=== PATIENT | female | born 1965 | race Caucasian/White ===

== ENCOUNTER 2018-09-11 05:20 | Emergency (ER) | payer MEDICAID ==
[~2018-09-11] VITALS: Ht 162.6 cm; Wt 76.9 kg
[2018-09-11 05:25] VITALS: BP 119/75
--- NOTE | 2018-09-11 05:25 | NUR ---
PT AMBULATED TO BED 4
--- NOTE | 2018-09-11 05:35 | NUR ---
CAME IN WITH C/O LOWER BACK PAIN RADIATING TO HER LOWER ABD, FOR 3 DAYS, NO TRAUMA NOR INJURY, DENIES PAINFUL URINATION.
--- NOTE | 2018-09-11 05:49 | NUR ---
Dr. Weldon evaluating patient at bedside.
[2018-09-11] MEDS ORDERED: NACL 0.9% 500 ML IV ONE ×2 (05:51)
[2018-09-11] MEDS ORDERED: ONDANSETRON 4 MG/2 ML VIAL IVP ONE ×2 (05:55→06:15)
[2018-09-11] MEDS ORDERED: KETOROLAC 30 MG/ML VIAL IVP ONE (05:55)
--- NOTE | 2018-09-11 06:16 | NUR ---
PT TAKEN TO CT VIA [facility].
[2018-09-11 07:00] VITALS: BP 101/59
== END 2018-09-11 07:00 | disposition home or self-care (01) ==
LOC: MED 05:20
DX: S39.012A Strain of muscle, fascia and tendon of lower back, initial encounter (principal); R50.9 Fever, unspecified; X58.XXXA Exposure to other specified factors, initial encounter; Y93.89 Activity, other specified; Y92.89 Other specified places as the place of occurrence of the external cause; Y99.8 Other external cause status
CPT/HCPCS: 74176; 81002; 96374; 96375; 99284; J1885; J2405; J7030

== ENCOUNTER 2018-12-08 20:00 | Emergency (ER) | payer MEDICAID ==
[~2018-12-08] VITALS: Ht 162.6 cm; Wt 76.4 kg
[2018-12-08 20:12] VITALS: BP 143/97
[2018-12-08] MEDS ORDERED: IBUPROFEN 600 MG TAB PO ONE (20:25)
[2018-12-08] MEDS ORDERED: NITROFURANTOIN 100 MG CAP PO ONE (20:25)
[2018-12-08 20:32] LABS: APPEARANCE,URINE CLEAR (CLEAR); BILIRUBIN,URINE NEGATIVE (NEGATIVE); BLOOD, URINE 3+ (NEGATIVE); COLOR,URINE LIGHT ORANGE (YELLOW); LEUKOCYTE ESTERASE ,URINE 3+ (NEGATIVE); NITRITE, URINE NEGATIVE (NEGATIVE); PH,URINE 7.5 (5.0-9.0); UGLUCOSE NEGATIVE (NEGATIVE)
--- NOTE | 2018-12-08 20:32 | NUR ---
Note undone in EDM - 12/08/18 at 2035 by IRLANDA PT C/O DYSURINATION X2 WEEKS AND ONLY ABLE TO PRODUCE MINIMAL AMOUNT. PAIN 10/10 UPON URINATION, BURNING. ALSO C/O VAGINAL ITCHING. DENIES ABDOMINAL PAIN, VAGINAL DISCHARGE. NO N/V/D. SAFETY MEASURES IN PLACE. AWAITING FOR MD TO EVALUATE PT.
--- NOTE | 2018-12-08 20:34 | NUR ---
PT C/O DYSURINATION X2 WEEKS AND ONLY ABLE TO PRODUCE MINIMAL AMOUNT OF URINE. PAIN 10/10 UPON URINATION, BURNING. ALSO C/O VAGINAL ITCHING. DENIES ABDOMINAL PAIN, VAGINAL DISCHARGE. NO N/V/D. SAFETY MEASURES IN PLACE. AWAITING FOR MD TO EVALUATE PT.
[2018-12-08 20:40] LABS: RBC,URINE 20-50 /HPF (0-5); WBC,URINE TOO MANY TO COUNT /HPF (0-5)
[2018-12-08] MEDS ORDERED: PHENAZOPYRIDINE 100 MG TAB PO ONE (20:40)
[2018-12-08 20:56] VITALS: BP 143/97
== END 2018-12-08 20:56 | disposition home or self-care (01) ==
LOC: MED 20:00
DX: N39.0 Urinary tract infection, site not specified (principal); N89.8 Other specified noninflammatory disorders of vagina
CPT/HCPCS: 81001; 81025; 87086; 99284

== ENCOUNTER 2020-07-01 06:40 | Emergency (ER) | payer MEDICAID ==
[~2020-07-01] VITALS: Ht 165.1 cm; Wt 77.1 kg
[2020-07-01 06:46] VITALS: BP 128/83
--- NOTE | 2020-07-01 06:48 | NUR ---
TO LOBBY A/W BED AMBULATORY
--- NOTE | 2020-07-01 08:22 | NUR ---
Pt taken to ER bed 4 for further evaluation.
[2020-07-01 08:44] VITALS: BP 124/79
--- NOTE | 2020-07-01 08:44 | NUR ---
Patient discharged with v/s stable. Written and verbal after care instructions given and explained. Patient alert, oriented and verbalized understanding of instructions. Ambulatory with steady gait. All questions addressed prior to discharge. ID band removed. Patient advised to follow up with PMD. Rx of zofran 8mg ODT PO, motrin 800mg TID PO PRN pain/fever, and cipro 500mg PO given. Patient educated on indication of medication including possible reaction and side effects. Opportunity to ask questions provided and answered.
== END 2020-07-01 08:44 | disposition home or self-care (01) ==
LOC: MED 06:40
DX: R11.2 Nausea with vomiting, unspecified (principal); R19.7 Diarrhea, unspecified; R10.9 Unspecified abdominal pain
CPT/HCPCS: 81002; 99283

== ENCOUNTER 2020-11-22 11:15 | Emergency (ER) | payer MEDICAID ==
[~2020-11-22] VITALS: Ht 172.7 cm; Wt 80.1 kg
[2020-11-22 11:17] VITALS: BP 128/68
--- NOTE | 2020-11-22 11:26 | NUR ---
Patient wheelchair assisted to bed 11.
--- NOTE | 2020-11-22 11:30 | NUR ---
SEE COMPLETE ASSESSMENT FOR ADDITIONAL INFORMATION.
--- NOTE | 2020-11-22 11:39 | NUR ---
DR. PARRA AT BEDSIDE FOR MSE
--- NOTE | 2020-11-22 11:53 | NUR ---
PT TAKEN TO RAD VIA W/C
--- NOTE | 2020-11-22 11:59 | NUR ---
PT PLACED IN RIGHT KNEE IMMOBILZER AND GIVEN CRUTCHES, CMS WNL BEFORE AND AFTER KNEE IMMOBILZER. PT GIVEN ONE ON ONE INSTRUCTIONS ON HOW TO PROPERLY USE CRUTCHES AND CRUTCHES WHERE ADJUSTED TO PT'S SIZE AND HEIGHT. PT SHOWED PROPER USE OF CRUTCHES IN FRONT OF STAFF AND STATES THAT THEY ARE COMFORTABLE WHILE USING CRUTCHES. PT HAD NO FURTHER QUESTIONS, RN AND MILLERD NOTIFIED.
--- NOTE | 2020-11-22 12:00 | NUR ---
PT RETURNED FROM RAD VIA W/C
--- NOTE | 2020-11-22 12:34 | NUR ---
Patient discharged with v/s stable. Written and verbal after care instructions given and explained. Patient verbalized understanding. Ambulatory with steady gait. All questions addressed prior to discharge. Advised to follow up with PMD.
== END 2020-11-22 12:34 | disposition home or self-care (01) ==
LOC: MED 11:15
DX: S89.91XA Unspecified injury of right lower leg, initial encounter (principal); X50.1XXA Overexertion from prolonged static or awkward postures, initial encounter; Y93.89 Activity, other specified; Y92.89 Other specified places as the place of occurrence of the external cause; Y99.8 Other external cause status
CPT/HCPCS: 29505; 73562; 99283

== ENCOUNTER 2022-02-05 12:31 | Emergency (ER) | payer MEDICAID ==
[~2022-02-05] VITALS: Ht 160 cm; Wt 83.5 kg
[2022-02-05 12:47] VITALS: BP 133/103
--- NOTE | 2022-02-05 12:50 | NUR ---
AMBULATED TO BATHROOM WITH STEADY GAIT
--- NOTE | 2022-02-05 14:08 | NUR ---
PT AMBULATED TO BED 04.
--- NOTE | 2022-02-05 14:15 | NUR ---
56 Y/O FEMALE C/O ABDOMINAL PAIN X 2 DAYS. RLQ PAIN NON-RADIATING, INTERMITTENT, "PULSING SENSATION" 8/10, WORSENING WITH MOVEMENT. DENIES TAKING MEDICATION FOR PAIN. DENIES FEVER, CHILLS, CP, SOB, DYSURIA, NVD. ABDOMEN IS SOFT, TENDER TO RLQ PALPATION. NKA PMH: DENIES
--- NOTE | 2022-02-05 17:20 | NUR ---
Pt reports 7/10 RLQ pain, intermittent and sharp. CARLI Melgar made aware
[2022-02-05] MEDS ORDERED: KETOROLAC 30 MG/ML VIAL IM ONE (17:30)
[2022-02-05] MEDS ORDERED: NAPR-1704 PO (18:09)
[2022-02-05 18:25] VITALS: BP 130/84
--- NOTE | 2022-02-05 18:25 | NUR ---
Patient discharged with v/s stable. Written and verbal after care instructions about ovarian cyst given and explained. Patient alert, oriented and verbalized understanding of instructions. Ambulatory with steady gait. All questions addressed prior to discharge. ID band removed. Patient advised to follow up with PMD. Rx of Naproxen given. Patient educated on indication of medication including possible reaction and side effects. Opportunity to ask questions provided and answered.
== END 2022-02-05 18:25 | disposition home or self-care (01) ==
LOC: MED 12:31
DX: N83.201 Unspecified ovarian cyst, right side (principal); Z79.899 Other long term (current) drug therapy
CPT/HCPCS: 76856; 81002; 81025; 96372; 99284; J1885; Q0092